=== PATIENT | female | born 1955 | race Caucasian/White ===

== ENCOUNTER 2023-07-02 14:37 | Emergency (ER) | payer BC ==
[2023-07-02 15:02] VITALS: TEMP 98.8
[2023-07-02 15:23] LABS: Absolute Neutrophil Ct (ANC) 5.84 x10^3/uL (1.4-6.9); BASOPHIL % 0.3 % (0.0-0.4); Basophil (Absolute #) 0.03 x10^3/uL (0-0.4); Eosinophil (Absolute #) 0.19 x10^3/uL (0-0.5); Hematocrit 41.4 % (35-47); Hemoglobin 13.6 g/dL (12.0-16.0); IMMATURE GRAN # 0.04 x10^3u/L (0.00-0.03); IMMATURE GRAN % 0.4 % (0.00-0.4); Lymphocyte (Absolute #) 2.14 x10^3/uL (1.0-4.6); Mean Cell Volume 88.5 fL (78-100); Mean Corpuscular Hemoglobin 29.1 pg (26-32); Mean Corpuscular Hgb Concent. 32.9 g/dL (32-36); Mean Platelet Volume 10.1 fL (7.5-11.0); Monocyte (Absolute #) 1.08 x10^3/uL (0.0-1.3); Monocytes % 11.6 % (0.0-12.0); Neutrophil % 62.7 % (36.0-66.0); Platelet Count 213 x10^3/uL (150-450); Red Blood Count 4.68 x10^6/uL (4.1-5.4); Red Cell Distribution Width 13.2 % (11.5-14.0); White Blood Count 9.3 x10^3/uL (4.0-10.5)
[2023-07-02 15:31] LABS: Appearance Clear (Clear); Bacteria None Seen /HPF (None Seen); Bilirubin Negative (Negative); Blood Negative (Negative); Epithelial Cells None Seen /HPF (None Seen); Glucose, Urine Negative (Negative); Hyaline Casts NONE SEEN /LPF (0-2); Ketones Negative (Negative); Leukocyte Esterase Large (Negative); Nitrite Negative (Negative); Ph 7.5 (4.6-8.0); Protein,Urine Dip Negative (Negative); RBC 0-2 /HPF (0-5); Specific Gravity <=1.005 (1.005-1.030); Urobilinogen 0.2 mg/dL (0.2)
[2023-07-02 15:32] LABS: INR 1.08 (0.8-3.0); PROTIME 11.7 SECONDS (9.4-12.5); PTT 33.4 SECONDS (25.1-36.5)
[2023-07-02 15:33] LABS: ADD URINE CULTURE? YES (NO)
[2023-07-02 15:33] LABS: ALBUMIN 4.2 g/dL (3.5-5.0); BILIRUBIN,TOTAL 1.4 mg/dL (0.2-1.3); Calcium 9.5 mg/dL (8.4-10.2); Creatinine 1 0.72 mg/dL (0.52-1.04); EST GLOMERULAR FILTRATION RATE 90.5 ML/MIN; Potassium 3.6 mmol/L (3.5-5.1); Total Protein 7.2 g/dL (6.3-8.2)
[2023-07-02] MEDS ORDERED: Sodium Chloride 0.9% 1000 ML 1,000 ML ONE (15:33)
[2023-07-02] MEDS ORDERED: CLONIDINE 0.1 MG TABLET ONE (15:33)
[2023-07-02] MEDS: CLONIDINE 0.1 MG TABLET PO ONE (15:34)
[2023-07-02] MEDS: Sodium Chloride 0.9% 1000 ML 1,000 ML IV SCH (15:36)
[2023-07-02 15:55] VITALS: O2SAT 97
--- NOTE | 2023-07-02 16:01 | XRAY ---
CLINICAL HISTORY: cough COMPARISON: None TECHNIQUE: An axial non-contrast CT scan of the brain was performed from the skull base to the high parietal region. One of the following dose reduction techniques was utilized for this exam: Automated exposure control, adjustment of the mA and/or kV according to patient size, use of iterative reconstruction FINDINGS: The cerebral parenchyma exhibits normal attenuation. Miller-white differentiation is well preserved. The ventricular system and subarachnoid CSF spaces are unremarkable. No midline shift was seen. The brainstem and cerebellum are normal in morphology and attenuation. No fracture was seen. Hyperostosis frontalis interna Visualized paranasal sinuses appear clear. Deviated nasal septum towards the right side. Right-sided nasal septal spur seen. Debi bullosa seen in the left middle turbinate both mastoid air cells are well-pneumatized IMPRESSION: 1. Unremarkable non-enhanced CT study of the brain. 2. Early infarct changes do not appear on CT. If there is strong clinical suspicion, an MRI brain with DWI/ADC maps is suggested. [facility] ER was called at [phone] at 2:55 PM [employer], 07/02/2023 and results were verbally communicated to Willie Mc. Electronically Signed by: Lis Canales MD. (07/02/2023 15:56:43 EDT)
--- NOTE | 2023-07-02 16:52 | ERPHSYRPT ---
- History of Present Illness Time Seen by Provider: 07/02/23 15:05 Source: patient, family Exam Limitations: no limitations Patient Subjective Stated Complaint: C/O Elevated B/P that started around 1pm today. States she had some "tingling" to her right hand and right side fo face but those symptoms have resolved. Denies any numbness. Triage Nursing Assessment: Patient arrived by ambulance. She is alert and oriented. NO SOB. Skin tone normal. Patient able to ambulate to the restroom and then back to bed without difficulties. Physician History: Patient is a 68-year-old white female who presents after she developed some elevated blood pressure associated with some strokelike symptoms consisting ofRight side of the face and right handShe. She and her have been camping at the [facility] [employer] area nearby who are the areas of view the clips. She took her meds when her blood pressure was 140/90. She increased her MAO inhibitor from 4 mg to 8 mg.He later noted a blood pressure reading of 220/112 along with increased tingling of the face and right hand. She had no visual changes she had no difficulty speaking.By the time she arrived in the ER her blood pressure was still elevated but was much closer to normal and her symptoms had pretty much resolved.She also does confirm that she has had some mild urinary tract infection symptoms. Timing/Duration: today Activities at Onset: none Severity of Pain-Max: none Severity of Pain-Current: none Nitro Today/Relief: no nitro taken today Aspirin Treatment Today: no aspirin today Associated Symptoms: other (Tingling of the right side of the face and right hand) Allergies/Adverse Reactions: levofloxacin [From Levaquin] Allergy (Verified 07/02/23 14:40) Penicillins Allergy (Verified 07/02/23 14:40) Sulfa (Sulfonamide Antibiotics) Allergy (Verified 07/02/23 14:40) Home Medications: Levothyroxine Sodium 50 Mcg [Synthroid 50 Mcg] 50 mcg PO DAILY 07/02/23 [History] Perindopril Erbumine 4 mg PO DAILY 07/02/23 [History] Perindopril Erbumine 8 mg PO HS 07/02/23 [History] Rivaroxaban 10 mg Tablet [Xarelto 10 mg Tablet] 20 mg PO DAILY 07/02/23 [History] Hx Tetanus, Diphtheria Vaccination/Date Given: Yes Hx Influenza Vaccination/Date Given: Yes Hx Pneumococcal Vaccination/Date Given: Yes Immunizations Up to Date: Yes Travel Risk - International Travel Have you traveled outside of the country in past 3 weeks: No - Emerging Infectious Disease Are you exhibiting symptoms associated with any current EIDs: No - Review of Systems Constitutional: No Fever, No Chills Eyes: No Symptoms Ears, Nose, & Throat: No Symptoms Respiratory: No Cough, No Dyspnea Cardiac: No Chest Pain, No Edema, No Syncope Abdominal/Gastrointestinal: No Abdominal Pain, No Nausea, No Vomiting, No Diarrhea Genitourinary Symptoms: No Dysuria Musculoskeletal: No Back Pain, No Neck Pain Skin: No Rash Neurological: Dizziness, Parasthesia, Tremors, No Focal Weakness, No Sensory Changes Psychological: No Symptoms Endocrine: No Symptoms All Other Systems: Reviewed and Negative - Past Medical History Pertinent Past Medical History: Yes Cardiac History: Arrhythmia, Hypertension, Other Endocrine Medical History: Hypothyroidism Musculoskeletal History: Fractures GI Medical History: Hernia Other Medical History: A-fib and SVT history, broken left arm, sebaceous cyst - Past Surgical History Past Surgical History: Yes Gastrointestinal: Appendectomy, Exploratory Laparoscopy, Hernia Repair Female Surgical History: Hysterectomy, Dilation & Curettage, Tubal Ligation Other Surgical History: sebaceous cyst removed from right breast, ablasion - Social History Smoking Status: Never smoker Exposure to second hand smoke: No Drug Use: marijuana - Nursing Vital Signs Nursing Vital Signs: Initial Vital Signs Temperature 98.8 F 07/02/23 14:51 Pulse Rate 79 07/02/23 14:51 Respiratory Rate 22 07/02/23 14:51 Blood Pressure 192/114 07/02/23 14:51 O2 Sat by Pulse Oximetry 96 07/02/23 14:51 Pain Scale Pain Intensity 0 - Physical Exam General Appearance: mild distress, alert Eye Exam: PERRL/EOMI, eyes nml inspection Ears, Nose, Throat Exam: normal ENT inspection, moist mucous membranes Neck Exam: normal inspection, non-tender, supple Respiratory Exam: normal breath sounds, lungs clear, No respiratory distress Cardiovascular Exam: regular rate/rhythm, normal heart sounds, No edema Gastrointestinal/Abdomen Exam: soft, No tenderness, No mass Back Exam: normal inspection, No CVA tenderness, No vertebral tenderness Extremity Exam: normal inspection, normal range of motion Neurologic Exam: alert, oriented x 3, cooperative, normal mood/affect, nml cerebellar function, sensation nml, No motor deficits Skin Exam: normal color, warm, dry Lymphatic Exam: No adenopathy SpO2: 97 - Course Nursing assessment & vital signs reviewed: Yes EKG Interpreted by Me: RATE (68), Sinus Rhythm, NORMAL AXIS, NORMAL INTERVALS, NORMAL QRS - Radiology Exams Chest X-ray Interpretation: Interpreted by me, Negative - CT Exams Head CT Interpretation: Tele-radiologist Report Ordered Tests: Active Orders 24 hr Category Date Time Status EKG-ER Only STAT Care 07/02/23 15:15 Active IV Insertion STAT Care 07/02/23 15:00 Active NPO (ED) STAT Care 07/02/23 15:15 Active CHEST 1 VIEW (PORTABLE) Stat Exams 07/02/23 15:16 Taken HEAD WITHOUT CONTRAST [CT] Stat Exams 07/02/23 15:16 Completed CBC W DIFF Stat Lab 07/02/23 14:55 Completed CMP Stat Lab 07/02/23 14:55 Completed CULTURE,URINE Stat Lab 07/02/23 15:00 Received Lactic Acid Stat Lab 07/02/23 15:23 Completed PROTIME WITH INR Stat Lab 07/02/23 14:55 Completed PTT Stat Lab 07/02/23 14:55 Completed TROPONIN Q4H Lab 07/02/23 14:55 Completed TROPONIN Q4H Lab 07/02/23 19:30 Ordered TROPONIN Q4H Lab 07/02/23 23:30 Ordered UA W/RFX UR CULTURE Stat Lab 07/02/23 15:00 Completed Medication Summary Generic Name Dose Route Start Last Admin Trade Name Freq PRN Reason Stop Dose Admin Sodium Chloride 1,000 mls @ 100 mls/hr 07/02/23 15:15 07/02/23 15:36 Sodium Chloride 0.9% 1000 Ml IV 08/01/23 15:14 100 mls/hr .Q10H DELMY Administration Discontinued Medications Generic Name Dose Route Start Last Admin Trade Name Freq PRN Reason Stop Dose Admin Clonidine 0.1 mg 07/02/23 15:21 07/02/23 15:34 Clonidine Hcl 0.1 Mg Tablet PO 07/02/23 15:22 0.1 mg STAT ONE Administration Clonidine Confirm 07/02/23 15:33 Clonidine Hcl 0.1 Mg Tablet Administered 07/02/23 15:34 Dose 0.1 mg .ROUTE .STK-MED ONE Lab/Rad Data: Laboratory Result Diagrams 07/02/23 14:55 07/02/23 14:55 Laboratory Results 07/02/23 07/02/23 07/02/23 Range/Units 15:23 15:00 14:55 WBC (4.0-10.5) x10^3/uL RBC (4.1-5.4) x10^6/uL Hgb (12.0-16.0) g/dL Hct (35-47) % MCV (78-100) fL MCH (26-32) pg MCHC (32-36) g/dL RDW (11.5-14.0) % Plt Count (150-450) x10^3/uL MPV (7.5-11.0) fL Gran % (36.0-66.0) % Immature Gran % (Auto) (0.00-0.4) % Nucleat RBC Rel Count (0.00-0.1) % Eos # (Auto) (0-0.5) x10^3/uL Immature Gran # (Auto) (0.00-0.03) x10^3u/L Absolute Lymphs (auto) (1.0-4.6) x10^3/uL Absolute Monos (auto) (0.0-1.3) x10^3/uL Absolute Nucleated RBC (0.00-0.01) x10^3u/L Lymphocytes % (24.0-44.0) % Monocytes % (0.0-12.0) % Eosinophils % (0.00-5.0) % Basophils % (0.0-0.4) % Absolute Granulocytes (1.4-6.9) x10^3/uL Basophils # (0-0.4) x10^3/uL PT (9.4-12.5) SECONDS INR (0.8-3.0) APTT (25.1-36.5) SECONDS Sodium (135-145) mmol/L Potassium (3.5-5.1) mmol/L Chloride (98-107) mmol/L Carbon Dioxide (22-30) mmol/L Anion Gap (5-15) MEQ/L BUN (7-17) mg/dL Creatinine (0.52-1.04) mg/dL Estimated GFR ML/MIN Glucose (74-106) mg/dL Lactic Acid 1.3 (0.4-2.0) Calcium (8.4-10.2) mg/dL Total Bilirubin (0.2-1.3) mg/dL AST (14-36) U/L ALT (0-35) U/L Alkaline Phosphatase (38-126) U/L Troponin I < 0.012 (0.000-0.033) ng/mL Serum Total Protein (6.3-8.2) g/dL Albumin (3.5-5.0) g/dL Urine Color Yellow (Yellow) Urine Appearance Clear (Clear) Urine pH 7.5 (4.6-8.0) Ur Specific [place] <=1.005 (1.005-1.030) Urine Protein Negative (Negative) Urine Glucose (UA) Negative (Negative) mg/dL Urine Ketones Negative (Negative) Urine Blood Negative (Negative) Urine Nitrite Negative (Negative) Urine Bilirubin Negative (Negative) Urine Urobilinogen 0.2 (0.2) mg/dL Ur Leukocyte Esterase Large A (Negative) U Hyaline Cast (Auto) NONE SEEN (0-2) /LPF Urine Microscopic RBC 0-2 (0-5) /HPF Urine Microscopic WBC 11-20 A (0-5) /HPF Ur Epithelial Cells None Seen (None Seen) /HPF Urine Bacteria None Seen (None Seen) /HPF Urine Culture Reflexed YES (NO) 07/02/23 07/02/23 07/02/23 Range/Units 14:55 14:55 14:55 WBC 9.3 (4.0-10.5) x10^3/uL RBC 4.68 (4.1-5.4) x10^6/uL Hgb 13.6 (12.0-16.0) g/dL Hct 41.4 (35-47) % MCV 88.5 (78-100) fL MCH 29.1 (26-32) pg MCHC 32.9 (32-36) g/dL RDW 13.2 (11.5-14.0) % Plt Count 213 (150-450) x10^3/uL MPV 10.1 (7.5-11.0) fL Gran % 62.7 (36.0-66.0) % Immature Gran % (Auto) 0.4 (0.00-0.4) % Nucleat RBC Rel Count 0.0 (0.00-0.1) % Eos # (Auto) 0.19 (0-0.5) x10^3/uL Immature Gran # (Auto) 0.04 H (0.00-0.03) x10^3u/L Absolute Lymphs (auto) 2.14 (1.0-4.6) x10^3/uL Absolute Monos (auto) 1.08 (0.0-1.3) x10^3/uL Absolute Nucleated RBC 0.00 (0.00-0.01) x10^3u/L Lymphocytes % 23.0 L (24.0-44.0) % Monocytes % 11.6 (0.0-12.0) % Eosinophils % 2.0 (0.00-5.0) % Basophils % 0.3 (0.0-0.4) % Absolute Granulocytes 5.84 (1.4-6.9) x10^3/uL Basophils # 0.03 (0-0.4) x10^3/uL PT 11.7 (9.4-12.5) SECONDS INR 1.08 (0.8-3.0) APTT 33.4 (25.1-36.5) SECONDS Sodium 142 (135-145) mmol/L Potassium 3.6 (3.5-5.1) mmol/L Chloride 108 H (98-107) mmol/L Carbon Dioxide 27 (22-30) mmol/L Anion Gap 11.0 (5-15) MEQ/L BUN 12 (7-17) mg/dL Creatinine 0.72 (0.52-1.04) mg/dL Estimated GFR 90.5 ML/MIN Glucose 99 (74-106) mg/dL Lactic Acid (0.4-2.0) Calcium 9.5 (8.4-10.2) mg/dL Total Bilirubin 1.40 H (0.2-1.3) mg/dL AST 30 (14-36) U/L ALT 31 (0-35) U/L Alkaline Phosphatase 65 (38-126) U/L Troponin I (0.000-0.033) ng/mL Serum Total Protein 7.2 (6.3-8.2) g/dL Albumin 4.2 (3.5-5.0) g/dL Urine Color (Yellow) Urine Appearance (Clear) Urine pH (4.6-8.0) Ur Specific [place] (1.005-1.030) Urine Protein (Negative) Urine Glucose (UA) (Negative) mg/dL Urine Ketones (Negative) Urine Blood (Negative) Urine Nitrite (Negative) Urine Bilirubin (Negative) Urine Urobilinogen (0.2) mg/dL Ur Leukocyte Esterase (Negative) U Hyaline Cast (Auto) (0-2) /LPF Urine Microscopic RBC (0-5) /HPF Urine Microscopic WBC (0-5) /HPF Ur Epithelial Cells (None Seen) /HPF Urine Bacteria (None Seen) /HPF Urine Culture Reflexed (NO) - Progress Progress: improved Air Movement: good Progress Note: 07/02/23 16:55 Patient has a normal blood pressure and no neurologic symptoms upon reexam.Valentina zheng does have evidence of urinary tract infection on her labs. 07/02/23 16:56 Antibiotics given: Yes Medical Desision Making - Independent Historian Additional History obtained from: Spouse - Diagnostic Testing Diagnostic test were ordered, analyzed, and reviewed by me: Yes Radiological Interpretation: Interpreted by me, Reviewed by me - Risk of complications Low Risk: Low risk of morbidity from additional dx testing or treatment - Departure Departure Disposition: Home Clinical Impression: Hypertension, Urinary tract infection Condition: Good Critical Care Time: No Referrals: DAPHNE AGUERO MD [Primary Care Provider] - Follow up/PCP as directed Instructions: Malignant Hypertension (DC), Urinary Tract Infection, Adult (DC) Additional Instructions: Patient was instructed to take her antibiotic and to also resume her hydrochlorothiazide 12.5 to control her blood pressure. Prescriptions: Nitrofurantoin Macro 100 mg [Macrobid 100MG Capsule] 100 mg PO BID 7 Days #14 cap
[2023-07-02 17:04] VITALS: BP 127/78; PULSE 69; RESP 13
--- NOTE | 2023-07-02 20:17 | XRAY ---
Indication: Cough. Comparison: None Portable chest demonstrates normal heart and lungs. Bony thorax intact.
== END 2023-07-02 17:11 | disposition home or self-care (01) ==
LOC: ED 14:37
DX: I10 Essential (primary) hypertension (principal); N39.0 Urinary tract infection, site not specified; R20.2 Paresthesia of skin; Z79.01 Long term (current) use of anticoagulants; Z79.899 Other long term (current) drug therapy
CPT/HCPCS: 36000; 36415; 70450; 71045; 80053; 81001; 83605; 84484; 85025; 85610; 85730; 87077; 87086; 87186; 93005; 99284; A9270-GY